=== PATIENT | female | born 1970 | race Caucasian/White ===

== ENCOUNTER 2021-02-02 10:45 | Outpatient (CLI) | payer OTHER ==
[2012-08-25 08:23] VITALS: BMI 23.9
== END 2021-02-02 23:59 | disposition home or self-care (01) ==
LOC: D.MAMMO 10:45
PROVIDERS: ATTEND Obstetrics & Gynecology
DX: Z12.31 Encounter for screening mammogram for malignant neoplasm of breast (principal)